=== PATIENT | male | born 1970 | race Caucasian/White ===

== ENCOUNTER 2020-05-01 21:28 | Emergency (ER) | payer OTHER, SELFPAY ==
--- NOTE | ~2020-05-01 | XR_ITS ---
EXAMINATION: XR chest 1V portable 05/01/2020 22:08 INDICATION: Chest palpitations PROCEDURE: AP portable chest COMPARISON: No prior studies for comparison. FINDINGS: The lungs are clear. The cardiomediastinal silhouette is within normal limits. There are no pleural effusions. There is no pneumothorax suspected. IMPRESSION: 1: NO ACUTE CARDIOPULMONARY DISEASE. Reviewed, dictated and finalized at location A. [employer]
[2020-05-01 21:30] VITALS: BP 145/98; PULSE 126; RESP 22; TEMP 36.6; O2SAT 96
--- NOTE | 2020-05-01 21:39 | ED.SOB ---
HPI - SOB/Dyspnea General Chief Complaint: Shortness of Breath/Dyspnea Stated Complaint: Racing HR, Dizzy, Short of breath Time Seen by Provider: 05/01/20 21:39 Source: patient and family Mode of arrival: ambulatory Limitations: no limitations History of Present Illness HPI Narrative: Patient is a 50-year-old male with a history of hypertension and hyperlipidemia who presents for evaluation of palpitations. Patient states he was sitting at home when he suddenly experienced fast, pounding heart rate. He denied concurrent chest pain. He states he felt slightly sweaty and short of breath. He denied nausea or vomiting. Patient states that symptoms are now resolved. He denies any chest pain. No palpitations currently. No numbness or weakness. Patient denies abdominal pain, flank pain. No recent illnesses. No fever or chills. No sick contacts. Related Data Home Medications Medication Instructions Recorded Confirmed lisinopril-hydrochlorothiazide tablet 05/01/20 nifedipine 60 mg PO DAILY 05/01/20 omeprazole 05/01/20 Allergies Allergy/AdvReac Type Severity Reaction Status Date / Time ampicillin Allergy Unknown UNKNOWN Verified 05/01/20 21:32 REACTION A CHILD Penicillins Allergy Unknown UNKNOWN Verified 05/01/20 21:32 REACTION A CHILD Review of Systems Review of Systems: Narrative: CONSTITUTIONAL: Denies fever, chills, or sweats. EYES: Denies visual changes, redness, or discharge. ENT: Denies rhinorrhea, congestion, sore throat, or otalgia. CARDIOVASCULAR: Denies current chest pain, palpitations, or edema. RESPIRATORY: Denies cough or dyspnea. GASTROINTESTINAL: Denies abdominal pain, nausea, vomiting, or diarrhea. GENITOURINARY: Denies dysuria or hematuria. SKIN: Denies rash or itching. MUSCULOSKELETAL: Denies back pain, joint pain, or myalgia. NEUROLOGIC: Denies headache, numbness, or weakness. PSYCHIATRIC: Patient does report a history of anxiety PMFSH Past Medical History Medical History Hyperlipidemia Hypertension Social History Social History Alcohol intake: current Substance use: never Living arrangements: with family Gender identity (if verbalized by the patient): Male Sexual Orientation (if Verbalized by the Patient): Straight or Heterosexual Exam Narrative: Exam Narrative: GENERAL: Awake, alert, conversant HEAD: Normocephalic, atraumatic. EYES: PERRLA and EOMI. ENT: Nares clear, no rhinorrhea or epistaxis. Mucous membranes moist. NECK: Supple. CHEST: No respiratory distress, breathing even and non labored HEART: Mildly tachycardic, rate 100s, sinus rhythm ABDOMEN: Obese, Non distended, non tender EXTREMITIES: Normal range of motion. No edema. No calf tenderness bilaterally. SKIN: Warm, dry, no rash. NEURO:No focal deficits. Alert and oriented x3 Course Vital Signs Vital signs: Vital Signs Temperature 36.6 C 05/01/20 21:30 Pulse Rate 126 H 05/01/20 21:30 Respiratory Rate 22 H 05/01/20 21:30 Blood Pressure 145/98 H 05/01/20 21:30 Pulse Oximetry 96 05/01/20 21:30 Temperature 36.6 C 05/01/20 21:30 Pulse Rate 126 H 05/01/20 21:30 Respiratory Rate 22 H 05/01/20 21:30 Blood Pressure 145/98 H 05/01/20 21:30 Pulse Oximetry 96 05/01/20 21:30 MDM - SOB/Dyspnea MDM Narrative Medical decision making narrative: Patient presented for evaluation of palpitations. At the time of assessment, ABCs are intact and vital signs are notable for sinus tachycardia and EKG that shows no evidence of arrhythmia. Blood pressure is stable, as is his oxygenation. No chest pain at the time of assessment. Heart rate is in the 100s, and symptoms do not seem consistent with anginal type symptoms. Laboratory results are notable for leukocytosis. Patient does not have any evidence of pneumonia. No abdominal pain. No urinary symptom, no UTI.
[2020-05-01 21:48] LABS: Basophils Absolute Auto 0.1 K/mm3 (0.0-0.1); Basophils Percent Auto 0.3 % (0.2-1.2); Eosinophils Absolute Auto 0.2 K/mm3 (0-0.3); Eosinophils Percent Auto 1.2 % (0-4.4); Hematocrit 44.2 % (42.0-52.0); Hemoglobin 15.4 g/dL (14.0-18.0); Immature Granulocyte Absolute 0.07 K/mm3 (0.00-0.031); Immature Granulocyte Percent A 0.4 % (0-0.5); Lymphocytes Absolute Auto 3.89 K/mm3 (0.9-3.2); Lymphocytes Percent Auto 21.9 % (18.3-44.2); Mean Corpuscular HGB Conc 34.8 g/dl (32-36); Mean Corpuscular Volume 89.1 fl (80-100); Mean Platelet Volume 10.6 fl (7.4-10.4); Monocytes Absolute Auto 1.6 K/mm3 (0.1-0.6); Monocytes Percent Auto 8.8 % (2.6-8.5); Neutrophils Percent Auto 67.4 % (45.5-73.1); Platelet Count Result 291 k/mm3 (150-375); Red Blood Count 4.96 M/mm3 (4.6-6.20); White Blood Count 17.8 K/mm3 (4.5-10.0)
[2020-05-01 22:01] LABS: Alanine Aminotransferase 69 U/L (4-50); Albumin Level 4.6 g/dL (3.5-5.1); Alkaline Phosphatase 75 U/L (38-126); Anion Gap 10 mmol/L (8-16); Aspartate Amino Transferase 37 U/L (17-59); Bilirubin,Total 0.4 mg/dL (0.2-1.3); Blood Urea Nitrogen 13 mg/dL (9-20); Calcium 9.5 mg/dL (8.4-10.2); Carbon Dioxide 29 mmol/L (22-30); Chloride 96 mmol/L (98-107); Estimated CRCL calculation 128 ml/min; Estimated Glomerular Filt Rate > 60; Glucose 141 mg/dL (75-110); Potassium 3.1 mmol/L (3.4-5.0); Sodium 135 mmol/L (137-145)
[2020-05-01 22:12] LABS: Troponin I < 0.012 ng/mL (0.000-0.034)
[2020-05-01 22:18] LABS: NT Pro B Type Natriuretic Pept 41 PG/ML (5-100)
[2020-05-01 22:21] LABS: Lactic Acid Reflex 1.5 mmol/L (0.7-2.1)
[2020-05-01] MEDS: POTASSIUM CHLORIDE 20 MEQ PACKET (FOR LIQUID) 40 MEQ PO (22:23)
[2020-05-01 22:45] LABS: Add Urine Microscopic? YES; Appearance Urine Clear (Clear); Bilirubin Urine Negative (Negative); Blood Urine 1+ (Negative); Color Urine Straw (Yellow); Glucose Urine UA Negative (Negative); Ketones Urine Negative (Negative); Leukocyte Esterase Ur Negative LEU/UL (Negative); Nitrate Urine Negative (Negative); Protein Urine Negative (Negative); RBC Urine 0-2 /hpf (0-2); Urobilinogen Urine Negative mg/dL (<2.0); WBC Urine 0-3 /hpf
[2020-05-02 00:05] VITALS: BP 148/95; PULSE 84; RESP 16; O2SAT 97
[2020-05-02 01:03] LABS: Troponin I < 0.012 ng/mL (0.000-0.034)
[2020-05-02 01:46] VITALS: BP 149/92; PULSE 87; RESP 16; TEMP 36.7; O2SAT 98
== END 2020-05-02 01:47 | disposition home or self-care (01) ==
PROVIDERS: Emergency Provider Emergency Medicine; PCP Family Medicine
DX: R00.2 Palpitations (principal); I10 Essential (primary) hypertension; E78.5 Hyperlipidemia, unspecified; R00.0 Tachycardia, unspecified; I45.9 Conduction disorder, unspecified; R94.31 Abnormal electrocardiogram [ECG] [EKG]
CPT/HCPCS: 36415; 71045; 80053; 81001; 83605; 83880; 84484; 85025; 85380; 93005; 99284; A9270